=== PATIENT | female | born 1975 | race Caucasian/White ===

== ENCOUNTER 2023-12-28 10:17 | Day surgery (SDC) | payer OTHER ==
[2023-12-25 10:36] VITALS: BMI 32.8
[2023-12-28 11:46] VITALS: RESP 18; TEMP 98
[2023-12-28 11:49] VITALS: BP 100/63; PULSE 91
== END 2023-12-28 12:01 | disposition home or self-care (01) ==
LOC: FASU-ENDO 10:17
PROVIDERS: ATTEND Internal Medicine Gastroenterology
PROC: 0DJD8ZZ Inspection of Lower Intestinal Tract, Via Natural or Artificial Opening Endoscopic (ICD-10-PCS; principal; 2023-12-28 11:14)
DX: Z12.11 Encounter for screening for malignant neoplasm of colon (principal)
CPT/HCPCS: 81025